=== PATIENT | male | born 1970 | race American Indian/Alaskan Native ===

== ENCOUNTER 2017-12-19 05:54 | Day surgery (SDC) | payer OTHER ==
[2017-12-19] MEDS ORDERED: fentaNYL 100 MCG/2 ML SDV IV ONE ×3 (05:55→07:14)
[2017-12-19] MEDS ORDERED: Midazolam 1 MG/ML 2 ML SDV IV ONE ×6 (05:55→07:30)
[2017-12-19] MEDS ORDERED: Dextrose 5%-0.45% NaCl 1,000 ML IV SCH (06:00)
[2017-12-19] MEDS ORDERED: Sodium Chloride 0.9% 10 ML Syringe FLUSH PRN (06:00)
[2017-12-19] MEDS ORDERED: Midazolam 1 MG/ML 2 ML SDV ONE (06:18)
[2017-12-19] MEDS ORDERED: fentaNYL 100 MCG/2 ML SDV ONE (06:18)
--- NOTE | 2017-12-19 09:21 | OR ---
DATE: 12/19/2017 PROCEDURE PERFORMED: Total colonoscopy and multiple pinch biopsies. INSTRUMENT USED: PCF-H180AL Olympus videocolonoscope. PREMEDICATIONS: Fentanyl 100 mcg intravenous and Versed 3.5 mg intravenous. The procedure was done under pulse oximetry, BP recording, and monitor and storage bin tender. INDICATION: The patient with chronic diarrhea, unexplained and not responsive to medical measures. Colonoscopic examination is done for detection of any polypoid lesions and removal, biopsies to be obtained for microscopic colitis, endoscopic hemostasis therapy if needed. DESCRIPTION OF PROCEDURE: Initial rectal exam was unremarkable. Rigid anoscopy showed small internal hemorrhoids without bleeding from them. The colonoscope was passed with ease. Scattered diverticula were noted in the distal left colon along with deformity. The examination was compromised in a few areas due to the presence of adherent fecal material, which could not be aspirated. Clear large liquid stools present. The scope was passed with ease up to the ileocecal area, photographs were taken of the normal-appearing cecum identified by appendiceal orifice and thin-lipped ileocecal folds. Examination of the terminal ileum could not be accomplished due to thin-lipped ileocecal valve. No bleeding was noted from any of the visualized areas at the commencement of the examination. No stricture. No vascular ectasia. No large isolated ulcerations seen. No evidence of diffuse inflammatory bowel disease in the form of friability, contact bleeding, or ulcerations. No polyp or tumor mass identified. Probing the proximal sides of folds and flexures, using adequate distention and clearing of the stool, withdrawal of the scope was made. Multiple pinch biopsies were taken from the normal-appearing mucosa of the mid transverse colon, mid descending colon, and rectosigmoid and sent for any histopathologic evidence of microscopic colitis. No bleeding was noted from any of the visualized areas at the completion of the examination. IMPRESSION: 1. Internal hemorrhoids. 2. Diverticulosis. The patient tolerated the procedure well. [facility] /[id number]
[2017-12-19 10:12] VITALS: BP 142/106
--- NOTE | 2017-12-19 11:22 | LETTER ---
12/19/2017 Lydia Patel MD [facility] [address] [place] [address] RE: ZAN DELATORRE : [address] Patel: Mr. Zan Delatorre had colonoscopic examination done this morning and he tolerated the procedure well. I herewith send a copy of the endoscopy note and photographs for your review. Thank you. Sincerely, [facility] /[id number]
== END 2017-12-19 09:35 | disposition home or self-care (01) ==
LOC: DL.ENDO 05:54
PROVIDERS: ATTEND Internal Medicine Gastroenterology
DX: K52.9 Noninfective gastroenteritis and colitis, unspecified (principal); K64.8 Other hemorrhoids; K57.30 Diverticulosis of large intestine without perforation or abscess without bleeding; K90.49 Malabsorption due to intolerance, not elsewhere classified; I10 Essential (primary) hypertension; B18.2 Chronic viral hepatitis C; E11.9 Type 2 diabetes mellitus without complications; F32.9 Major depressive disorder, single episode, unspecified; Z79.82 Long term (current) use of aspirin; Z98.890 Other specified postprocedural states
CPT/HCPCS: 45380; 82962; J2250; J3010; J7042

== ENCOUNTER 2017-12-26 17:03 | Emergency (ER) | payer OTHER ==
[2017-12-26] MEDS ORDERED: Sodium Chloride 0.9% 10 ML Syringe FLUSH PRN (17:05)
[2017-12-26] MEDS ORDERED: Sodium Chloride 0.9% 1,000 ML IV ONE ×2 (17:08→18:26)
[2017-12-26] MEDS ORDERED: Ondansetron 4 MG Tab.DIS PO ONE (17:09)
[2017-12-26] MEDS ORDERED: fentaNYL 100 MCG/2 ML SDV IVPUSH ONE (17:09)
[2017-12-26 17:50] LABS: CHLORIDE,CL 107 mmol/L (101-111); SODIUM,NA 136 mmol/L (135-145)
[2017-12-26] MEDS ORDERED: hydrALAZINE 20 MG/ML SDV IVPUSH ONE (18:26)
[2017-12-26 18:34] VITALS: BP 173/98
--- NOTE | 2017-12-26 18:52 | EDM.PDOC ---
Scribed by Emily Burgess 12/26/17 [id number] for Ronald Murry MD ED HPI GENERAL MEDICAL PROBLEM - General Chief Complaint: Respiratory Problem Stated Complaint: SOB EPIGASTRIC PAIN Time Seen by Provider: 12/26/17 16:51 Source of Information: Reports: Patient, RN, RN Notes Reviewed History Limitations: Reports: No Limitations - History of Present Illness INITIAL COMMENTS - FREE TEXT/NARRATIVE: Patient presents to ER from [facility] for further evaluation of right upper quadrant and epigastric pain which has been intermittent and recurrent for 2 weeks. Today he developed fever and chills with worsening pain so he returned to clinic. Earlier this week he was found to have a lipase greater than 1000 and had an abdominal ultrasound at the clinic which revealed a large gallstone. Patient complaint that the pain radiates to the back and right shoulder blade. Onset: Gradual Duration: Getting Worse Location: Reports: Abdomen Quality: Reports: Ache Severity: Severe Improves with: Reports: None Worsens with: Reports: None Associated Symptoms: Reports: No Other Symptoms Epigastric Pain Score (Numeric/FACES): 8 - Related Data Allergies Allergy/AdvReac Type Severity Reaction Status Date / Time No Known Allergies Allergy Verified 12/26/17 16:41 Home Meds: Home Meds Aspirin [Ecotrin] 1 tab PO DAILY 11/26/17 [History] Lisinopril 1 tab PO DAILY 11/26/17 [History] Hydrochlorothiazide 25 mg PO DAILY 12/26/17 [History] Past Medical History HEENT History: Reports: None Cardiovascular History: Reports: High Cholesterol, Hypertension Respiratory History: Reports: None Gastrointestinal History: Reports: Hepatitis Genitourinary History: Reports: None Musculoskeletal History: Reports: Other (See Below) Other Musculoskeletal History: osteomyelitis Neurological History: Reports: Concussion Other Neuro History: multiple concussion Psychiatric History: Reports: Depression Endocrine/Metabolic History: Reports: Diabetes, Type II Hematologic History: Reports: None Immunologic History: Reports: None Oncologic (Cancer) History: Reports: None Dermatologic History: Reports: None - Infectious Disease History Infectious Disease History: Reports: Hepatitis C, MRSA - Past Surgical History HEENT Surgical History: Reports: None GI Surgical History: Reports: None Male Surgical History: Reports: None Musculoskeletal Surgical History: Reports: Other (See Below) Other Musculoskeletal Surgeries/Procedures:: ft and knee surgical procedures. has plate in ankle Social & Family History - Family History Family Medical History: Noncontributory - Tobacco Use Smoking Status *Q: Never Smoker - Caffeine Use Caffeine Use: Reports: Coffee Other Caffeine Use: 1/2 pot of coffee - Alcohol Use Date of Last Drink: 12/20/17 ED ROS GENERAL - Review of Systems Review Of Systems: ROS reveals no pertinent complaints other than HPI. ED EXAM, GENERAL - Physical Exam Exam: See Below Exam Limited By: No Limitations General Appearance: Alert, Other (acutely ill but nontoxicand uncomfortable appearing) Eye Exam: Bilateral Eye: Normal Inspection (normal scleral icterus) Nose: Normal Inspection, Normal Mucosa, No Blood Throat/Mouth: Normal Lips, Normal Voice, No Airway Compromise, Other (dry oral membranes) Head: Atraumatic, Normocephalic Neck: Normal Inspection, Supple, Non-Tender, Full Range of Motion Respiratory/Chest: No Respiratory Distress, Lungs Clear, Normal Breath Sounds, No Accessory Muscle Use, Chest Non-Tender Cardiovascular: Regular Rate, Rhythm GI/Abdominal: Normal Bowel Sounds, Soft, No Distention, No Abnormal Bruit, Guarding, Tender (right upper quadrant and epigastric region). No: Rigid, Rebound (Male) Exam: Deferred Rectal (Males) Exam: Deferred Back Exam: Normal Inspection, Full Range of Motion. No: CVA Tenderness (L), CVA Tenderness (R) Extremities: Normal Inspection Neurological: Alert, Oriented, No Motor/Sensory Deficits Psychiatric: Anxious Skin Exam: Warm, Dry, Intact, Normal Color, No Rash EKG INTERPRETATION EKG Date: 12/26/17 Time: 17:11 Rhythm: Other (sinus rhythm) Rate (Beats/Min): 67 [place]: Normal P-Wave: Present QRS: Other (left ventricular hypertrophy) ST-T: Normal QT: Prolonged Course - Vital Signs Last Recorded V/S: Last Vital Signs Temp 37.4 C 12/26/17 18:31 Pulse 81 12/26/17 18:31 Resp 20 12/26/17 18:31 BP 173/98 H 12/26/17 18:31 Pulse Ox 97 12/26/17 18:31 - Orders/Labs/Meds Orders: Active Orders 24 hr Category Date Time Status EKG 12 Lead [EKG Documentation Completion] [RC] STAT Care 12/26/17 17:07 Active Peripheral IV Care [RC] . DIRECTED Care 12/26/17 17:08 Active DRUG SCREEN URINE BIORAD [URCHEM] Stat Lab 12/26/17 18:40 Ordered UA W/MICROSCOPIC [URIN] Stat Lab 12/26/17 18:40 Ordered Sodium Chloride 0.9% [Normal Saline] 1,000 ml Med 12/26/17 18:26 Active IV .BOLUS Sodium Chloride 0.9% [Saline Flush] Med 12/26/17 17:05 Active 10 ml FLUSH ASDIRECTED PRN Peripheral IV Insertion Adult [OM.PC] Stat Oth 12/26/17 17:05 Ordered Medication Orders Sodium Chloride (Normal Saline) 1,000 mls @ 999 mls/hr IV .BOLUS ONE Stop: 12/26/17 19:26 Last Admin: 12/26/17 18:28 Dose: 999 mls/hr Sodium Chloride (Saline Flush) 10 ml FLUSH ASDIRECTED PRN PRN Reason: Keep Vein Open Last Admin: 12/26/17 17:26 Dose: 10 ml Labs: Laboratory Tests 12/26/17 12/26/17 Range/Units 17:23 17:23 WBC 12.5 H (5.0-10.0) 10^3/uL RBC 4.23 L (4.6-6.2) 10^6/uL Hgb 13.1 L (14.0-18.0) g/dL Hct 36.8 L (40.0-54.0) % MCV 87.0 D (80-100) fL MCH 31.0 (27.0-34.0) pg MCHC 35.6 H (33.0-35.0) g/dL Plt Count 187 (150-450) 10^3/uL Neut % (Auto) 87.5 H (42.2-75.2) % Lymph % (Auto) 5.9 L (20.5-50.1) % [place] % (Auto) 6.2 (2-8) % Eos % (Auto) 0.2 L (1.0-3.0) % Baso % (Auto) 0.2 (0.0-1.0) % Sodium 136 (135-145) mmol/L Potassium 3.0 L (3.6-5.0) mmol/L Chloride 107 (101-111) mmol/L Carbon Dioxide 23.0 (21.0-31.0) mmol/L Anion Gap 9.0 BUN 20 H (7-18) mg/dL Creatinine 1.3 (0.6-1.3) mg/dL Est Cr Clr Drug Dosing 76.43 mL/min Estimated GFR (MDRD) 60 BUN/Creatinine Ratio 15.38 Glucose 110 H (74-105) mg/dL Calcium 7.7 L (8.4-10.2) mg/dl Total Bilirubin 1.1 H (0.2-1.0) mg/dL AST 34 (10-42) IU/L ALT 24 (10-60) IU/L Alkaline Phosphatase 67 (42-121) IU/L Total Protein 5.5 L (6.7-8.2) g/dl Albumin 2.6 L (3.2-5.5) g/dl Globulin 2.9 Albumin/Globulin Ratio 0.90 Amylase 147 H (28-100) U/L Lipase 208 H (22-51) U/L Ethyl Alcohol < 5 mg/dL Meds: Medications Generic Name Dose Route Start Last Admin Trade Name Freq PRN Reason Stop Dose Admin Sodium Chloride 1,000 mls @ 999 mls/hr 12/26/17 18:26 12/26/17 18:28 Normal Saline IV 12/26/17 19:26 999 mls/hr .BOLUS ONE Administration Sodium Chloride 10 ml 12/26/17 17:05 12/26/17 17:26 Saline Flush FLUSH 10 ml ASDIRECTED PRN Administration Keep Vein Open Discontinued Medications Generic Name Dose Route Start Last Admin Trade Name Freq PRN Reason Stop Dose Admin Fentanyl 25 mcg 12/26/17 17:09 12/26/17 17:27 Sublimaze IVPUSH 12/26/17 17:10 25 mcg ONETIME ONE Administration Hydralazine HCl 20 mg 12/26/17 18:26 12/26/17 18:30 Apresoline IVPUSH 12/26/17 18:27 10 mg ONETIME ONE Administration Sodium Chloride 1,000 mls @ 999 mls/hr 12/26/17 17:08 12/26/17 17:26 Normal Saline IV 12/26/17 18:08 999 mls/hr .BOLUS ONE Administration Ondansetron HCl 4 mg 12/26/17 17:09 12/26/17 17:27 Zofran Odt PO 12/26/17 17:10 4 mg ONETIME ONE Administration Departure - Departure Time of Disposition: 18:45 Disposition: DC/Tfer to Acute Hospital 02 Condition: Serious Clinical Impression: Gallstones, Cholecystitis, Hypertension, uncontrolled - Discharge Information Forms: ED Department Discharge, Interfacility Transfer EMTALA - My Orders Last 24 Hours: My Active Orders 12/26/17 17:05 Sodium Chloride 0.9% [Saline Flush] 10 ml FLUSH ASDIRECTED PRN Peripheral IV Insertion Adult [OM.PC] Stat 12/26/17 17:07 EKG 12 Lead [EKG Documentation Completion] [RC] STAT 12/26/17 17:08 Peripheral IV Care [RC] . DIRECTED 12/26/17 18:26 Sodium Chloride 0.9% [Normal Saline] 1,000 ml IV .BOLUS 12/26/17 18:40 DRUG SCREEN URINE BIORAD [URCHEM] Stat UA W/MICROSCOPIC [URIN] Stat - Assessment/Plan Last 24 Hours: My Active Orders 12/26/17 17:05 Sodium Chloride 0.9% [Saline Flush] 10 ml FLUSH ASDIRECTED PRN Peripheral IV Insertion Adult [OM.PC] Stat 12/26/17 17:07 EKG 12 Lead [EKG Documentation Completion] [RC] STAT 12/26/17 17:08 Peripheral IV Care [RC] . DIRECTED 12/26/17 18:26 Sodium Chloride 0.9% [Normal Saline] 1,000 ml IV .BOLUS 12/26/17 18:40 DRUG SCREEN URINE BIORAD [URCHEM] Stat UA W/MICROSCOPIC [URIN] Stat I have read and agree with the documentation that has been completed regarding this visit. By signing this record, I attest that the documentation was completed in my physical presence and is an accurate record of the encounter.
== END 2017-12-26 19:19 ==
LOC: DL.ED 17:03
DX: K80.10 Calculus of gallbladder with chronic cholecystitis without obstruction (principal); E78.00 Pure hypercholesterolemia, unspecified; I10 Essential (primary) hypertension; E11.9 Type 2 diabetes mellitus without complications; Z79.82 Long term (current) use of aspirin; Z79.899 Other long term (current) drug therapy
CPT/HCPCS: 36415; 80053; 80305; 81001; 82150; 83690; 85025; 93005; 96361; 96374; 96375; 99284; A9270; G0480; J0360; J3010; J7030; J7050; 93010

== ENCOUNTER 2018-01-05 17:15 | Emergency (ER) | payer OTHER ==
[2018-01-05 17:34] VITALS: BP 153/106
--- NOTE | 2018-01-05 20:14 | EDM.PDOC ---
ED HPI GENERAL MEDICAL PROBLEM - General Chief Complaint: Lower Extremity Injury/Pain Stated Complaint: LEFT LEG Time Seen by Provider: 01/05/18 20:06 Source of Information: Reports: Patient History Limitations: Reports: No Limitations - History of Present Illness INITIAL COMMENTS - FREE TEXT/NARRATIVE: c/o pain in left buttock to ankle since friday. Unable to find position of comfort. tried naproxyn and ibuprofen this am and nothing since. Left Leg Pain Score (Numeric/FACES): 10 - Related Data Allergies Allergy/AdvReac Type Severity Reaction Status Date / Time No Known Allergies Allergy Verified 12/26/17 16:41 Home Meds: Home Meds Aspirin [Ecotrin] 1 tab PO DAILY 11/26/17 [History] Lisinopril 1 tab PO DAILY 11/26/17 [History] Hydrochlorothiazide 25 mg PO DAILY 12/26/17 [History] Naproxen 250 mg PO PRN 01/05/18 [History] Venlafaxine [Effexor] 75 mg PO DAILY 01/05/18 [History] amLODIPine Besylate [Amlodipine Besylate] 10 mg PO DAILY 01/05/18 [History] Past Medical History HEENT History: Reports: None Cardiovascular History: Reports: High Cholesterol, Hypertension Respiratory History: Reports: None Gastrointestinal History: Reports: Hepatitis Genitourinary History: Reports: None Musculoskeletal History: Reports: Other (See Below) Other Musculoskeletal History: osteomyelitis Neurological History: Reports: Concussion Other Neuro History: multiple concussion Psychiatric History: Reports: Depression Endocrine/Metabolic History: Reports: Diabetes, Type II Hematologic History: Reports: None Immunologic History: Reports: None Oncologic (Cancer) History: Reports: None Dermatologic History: Reports: None - Infectious Disease History Infectious Disease History: Reports: Hepatitis C, MRSA - Past Surgical History HEENT Surgical History: Reports: None GI Surgical History: Reports: None Male Surgical History: Reports: None Musculoskeletal Surgical History: Reports: Other (See Below) Other Musculoskeletal Surgeries/Procedures:: ft and knee surgical procedures. has plate in ankle Social & Family History - Family History Family Medical History: Noncontributory - Tobacco Use Smoking Status *Q: Never Smoker - Caffeine Use Caffeine Use: Reports: Coffee, Soda, Tea Other Caffeine Use: 1/2 pot of coffee - Recreational Drug Use Recreational Drug Use: No Review of Systems - Review of Systems Review Of Systems: ROS reveals no pertinent complaints other than HPI. ED EXAM, GENERAL - Physical Exam Exam: See Below Exam Limited By: No Limitations General Appearance: Alert, Mild Distress Eye Exam: Bilateral Eye: EOMI Ears: Normal External Exam Nose: Normal Inspection Throat/Mouth: Normal Inspection Head: Atraumatic, Normocephalic Neck: Normal Inspection, Full Range of Motion Respiratory/Chest: No Respiratory Distress, Lungs Clear Cardiovascular: Normal Peripheral Pulses, Regular Rate, Rhythm Back Exam: Muscle Spasm, Paraspinal Tenderness (left sciatic ) Extremities: Leg Pain (left). No: Limited Range of Motion, Pallor, Redness Neurological: Alert, Oriented, Normal Cognition, Normal Reflexes, Other (equal strength bilateral). No: Abnormal Reflexes Skin Exam: Warm, Dry, Intact, Normal Color Course - Vital Signs Last Recorded V/S: Last Vital Signs Temp 97.5 F 01/05/18 17:32 Pulse 94 01/05/18 17:32 Resp 20 01/05/18 17:32 BP 153/106 H 01/05/18 17:32 Pulse Ox 100 01/05/18 17:32 - Orders/Labs/Meds Labs: Laboratory Tests 01/05/18 01/05/18 01/05/18 Range/Units 17:39 20:45 20:45 Urine Color Yellow (YELLOW) Urine Appearance Slightly cloudy (CLEAR) Urine pH 7.5 (5.0-9.0) Ur Specific [place] 1.025 (1.005-1.030) Urine Protein >=300 H (NEGATIVE) Urine Glucose (UA) Negative (NEGATIVE) Urine Ketones Negative (NEGATIVE) Urine Occult Blood Moderate H (NEGATIVE) Urine Nitrite Negative (NEGATIVE) Urine Bilirubin Negative (NEGATIVE) Urine Urobilinogen 0.2 (0.2-1.0) mg/dL Ur Leukocyte Esterase Negative (NEGATIVE) Urine RBC >100 H /HPF Urine WBC 0-5 (0-5/HPF) /HPF Ur Epithelial Cells Few /HPF Urine Bacteria Few (0-FEW/HPF) /HPF Urine Mucus Few H /LPF Urine Opiates Screen Positive H (NEGATIVE) Ur Oxycodone Screen Negative (NEGATIVE) Urine Methadone Screen Negative (NEGATIVE) Ur Barbiturates Screen Negative (NEGATIVE) U Tricyclic Antidepress Negative (NEGATIVE) Ur Phencyclidine Scrn Negative (NEGATIVE) Ur Amphetamine Screen Negative (NEGATIVE) U Methamphetamines Scrn Negative (NEGATIVE) Urine MDMA Screen Negative (NEGATIVE) U Benzodiazepines Scrn Negative (NEGATIVE) Urine Cocaine Screen Negative (NEGATIVE) U Marijuana (THC) Screen Positive H (NEGATIVE) Ethyl Alcohol < 5 mg/dL Meds: Medications Discontinued Medications Generic Name Dose Route Start Last Admin Trade Name Celia PRN Reason Stop Dose Admin Cyclobenzaprine HCl Confirm 01/05/18 20:29 Flexeril Administered 01/05/18 20:30 Dose 10 mg .ROUTE .STK-MED ONE Ketorolac Tromethamine 30 mg 01/05/18 20:15 01/05/18 20:29 Toradol IM 01/05/18 20:16 30 mg ONETIME ONE Administration Orphenadrine Citrate 60 mg 01/05/18 20:16 01/05/18 20:30 Norflex IM 01/05/18 20:17 60 mg ONETIME ONE Administration Tramadol HCl Confirm 01/05/18 20:28 Ultram Administered 01/05/18 20:29 Dose 50 mg .ROUTE .STK-MED ONE Departure - Departure Time of Disposition: 20:32 Disposition: Home, Self-Care 01 Condition: Good Clinical Impression: Sciatic nerve pain Qualifiers: Laterality: left Qualified Code(s): M54.32 - Sciatica, left side - Discharge Information Instructions: Sciatica, [id number] Forms: ED Department Discharge Additional Instructions: light activity increase fluid intake ice to low back /buttock area flexeril 10mg every 8 hours as needed #6 Tramadol 50mg one every 6 hours as needed for severe pain clinic follow up
[2018-01-05] MEDS ORDERED: Ketorolac 30 MG/ML SDV IM ONE (20:15)
[2018-01-05] MEDS ORDERED: traMADol 50 MG Tab ONE (20:28)
[2018-01-05] MEDS ORDERED: Cyclobenzaprine 10 MG Tab ONE (20:29)
== END 2018-01-05 20:42 | disposition home or self-care (01) ==
LOC: DL.ED 17:15
DX: M54.32 Sciatica, left side (principal); E78.00 Pure hypercholesterolemia, unspecified; I10 Essential (primary) hypertension; E11.9 Type 2 diabetes mellitus without complications; Z79.82 Long term (current) use of aspirin; Z79.899 Other long term (current) drug therapy
CPT/HCPCS: 36415; 80305; 81001; 96372; 99283; G0480; J1885; J2360

== ENCOUNTER 2020-10-29 13:58 | Emergency (ER) | payer OTHER ==
[2020-10-29 15:02] VITALS: BP 115/71; PULSE 73
== END 2020-10-29 16:40 | disposition left against medical advice (07) ==
LOC: DL.ED 13:58
DX: Z53.21 Procedure and treatment not carried out due to patient leaving prior to being seen by health care provider (principal)

== ENCOUNTER 2020-10-29 20:49 | Emergency (ER) | payer OTHER ==
[2020-10-29 21:06] VITALS: BP 117/67; PULSE 73
--- NOTE | 2020-10-29 21:50 | EDM.PDOC ---
ED HPI GENERAL MEDICAL PROBLEM - General Chief Complaint: Lower Extremity Injury/Pain Stated Complaint: RIGHT KNEE SWELLING Time Seen by Provider: 10/29/20 21:25 Source of Information: Reports: Patient History Limitations: Reports: No Limitations - History of Present Illness INITIAL COMMENTS - FREE TEXT/NARRATIVE: This 50 yo male patient reports to the ED with right knee swelling, pain and redness that started over the past 3 days. The patient reports he also had pain and swelling in his left shoulder. The patient denies any recent falls or injuries. Onset: Gradual Duration: Day(s):, Constant, Getting Worse Location: Reports: Lower Extremity, Right Quality: Reports: Ache Severity: Moderate Improves with: Reports: None Worsens with: Reports: None Context: Reports: Other Associated Symptoms: Reports: No Other Symptoms Knee Pain Score (Numeric/FACES): 10 - Related Data Allergies Allergy/AdvReac Type Severity Reaction Status Date / Time No Known Allergies Allergy Verified 10/29/20 14:58 Home Meds: Home Meds Lisinopril 1 tab PO BEDTIME 11/26/17 [History] lisinopriL [Lisinopril] 1 tab PO DAILY 10/29/20 [History] Past Medical History HEENT History: Reports: None Cardiovascular History: Reports: High Cholesterol, Hypertension Respiratory History: Reports: None Gastrointestinal History: Reports: Hepatitis Genitourinary History: Reports: None Musculoskeletal History: Reports: Other (See Below) Other Musculoskeletal History: osteomyelitis Neurological History: Reports: Concussion Other Neuro History: multiple concussion Psychiatric History: Reports: Depression Endocrine/Metabolic History: Reports: Diabetes, Type II Hematologic History: Reports: None Immunologic History: Reports: None Oncologic (Cancer) History: Reports: None Dermatologic History: Reports: None - Infectious Disease History Infectious Disease History: Reports: Hepatitis C, MRSA - Past Surgical History HEENT Surgical History: Reports: None GI Surgical History: Reports: None Male Surgical History: Reports: None Musculoskeletal Surgical History: Reports: Other (See Below) Other Musculoskeletal Surgeries/Procedures:: ft and knee surgical procedures. has plate in ankle Social & Family History - Family History Family Medical History: No Pertinent Family History - Tobacco Use Tobacco Use Status *Q: Never Tobacco User Second Hand Smoke Exposure: No - Caffeine Use Caffeine Use: Reports: Coffee Other Caffeine Use: 1/2 pot of coffee - Recreational Drug Use Recreational Drug Use: No Review of Systems - Review of Systems Review Of Systems: Comprehensive ROS is negative, except as noted in HPI. ED EXAM, GENERAL - Physical Exam Exam: See Below Exam Limited By: No Limitations General Appearance: Alert, WD/WN, Moderate Distress Eye Exam: Bilateral Eye: EOMI, Normal Inspection, PERRL Ears: Normal External Exam, Normal Canal, Hearing Grossly Normal, Normal TMs Nose: Normal Inspection, Normal Mucosa, No Blood Throat/Mouth: Normal Inspection, Normal Lips, Normal Teeth, Normal Gums, Normal Oropharynx, Normal Voice, No Airway Compromise Head: Atraumatic, Normocephalic Neck: Normal Inspection, Supple, Non-Tender, Full Range of Motion Respiratory/Chest: No Respiratory Distress, Lungs Clear, Normal Breath Sounds, No Accessory Muscle Use, Chest Non-Tender Cardiovascular: Normal Peripheral Pulses, Regular Rate, Rhythm, No Edema, No Gallop, No JVD, No Murmur, No Rub GI/Abdominal: Normal Bowel Sounds, Soft, Non-Tender, No Organomegaly, No Disten tion, No Abnormal Bruit, No Mass (Male) Exam: Deferred Rectal (Males) Exam: Deferred Back Exam: Normal Inspection, Full Range of Motion, NT Extremities: Joint Swelling (right knee), Limited Range of Motion Neurological: Alert, Oriented, CN II-XII Intact, Normal Cognition, Normal Gait, Normal Reflexes, No Motor/Sensory Deficits Psychiatric: Normal Affect, Normal Mood Skin Exam: Warm, Dry, Intact, Normal Color, No Rash Lymphatic: No Adenopathy Course - Vital Signs Last Recorded V/S: Last Vital Signs Temp 36.8 C 10/29/20 21:03 Pulse 73 10/29/20 21:03 Resp 18 10/29/20 21:03 BP 117/67 10/29/20 21:03 Pulse Ox 100 10/29/20 21:03 - Orders/Labs/Meds Labs: Laboratory Tests 10/29/20 10/29/20 Range/Units 21:32 21:32 WBC 15.9 H (5.0-10.0) 10^3/uL RBC 3.85 L (4.6-6.2) 10^6/uL Hgb 11.9 L (14.0-18.0) g/dL Hct 34.1 L (40.0-54.0) % MCV 88.6 (80-100) fL MCH 30.9 (27.0-34.0) pg MCHC 34.9 (33.0-35.0) g/dL Plt Count 274 D (150-450) 10^3/uL Neut % (Auto) 74.2 (42.2-75.2) % Lymph % (Auto) 13.9 L (20.5-50.1) % [place] % (Auto) 11.1 H (2-8) % Eos % (Auto) 0.7 L (1.0-3.0) % Baso % (Auto) 0.1 (0.0-1.0) % Add Manual Diff Yes Neutrophils % (Manual) 76 H (42-75) % Band Neutrophils % 1 % Lymphocytes % (Manual) 13 L (20-50) % Monocytes % (Manual) 9 H (2-8) % Eosinophils % (Manual) 1 (1-3) % Sodium 139 (136-145) mmol/L Potassium 3.8 (3.5-5.1) mmol/L Chloride 104 (98-107) mmol/L Carbon Dioxide 26 (21-32) mmol/L Anion Gap 12.8 (7-13) mEq/L BUN 34 H (7-18) mg/dL Creatinine 2.37 H (0.70-1.30) mg/dL Est Cr Clr Drug Dosing 40.60 mL/min Estimated GFR (MDRD) 29 BUN/Creatinine Ratio 14.3 (No establ ref range) Glucose 103 H (74-99) mg/dL Uric Acid 5.6 (3.5-7.2) mg/dL Calcium 8.0 L (8.5-10.1) mg/dL Total Bilirubin 0.4 (0.2-1.0) mg/dL AST 32 (15-37) U/L ALT 64 H (16-63) U/L Alkaline Phosphatase 95 (46-116) U/L Total Protein 7.3 (6.4-8.2) g/dL Albumin 2.7 L (3.4-5.0) g/dL Globulin 4.6 Albumin/Globulin Ratio 0.59 Meds: Medications Discontinued Medications Generic Name Dose Route Start Last Admin Trade Name Freq PRN Reason Stop Dose Admin Prednisone 40 mg 10/29/20 22:42 Prednisone 20 Mg Tab PO 10/29/20 22:43 ONETIME ONE Departure - Departure Time of Disposition: 22:47 Disposition: Home, Self-Care 01 Condition: Fair Clinical Impression: Effusion, right knee - Discharge Information *PRESCRIPTION DRUG MONITORING PROGRAM REVIEWED*: Not Applicable *COPY OF PRESCRIPTION DRUG MONITORING REPORT IN PATIENT INOCENCIO: Not Applicable Instructions: Knee Effusion, [id number] Forms: ED Department Discharge Care Plan Goals: The patient was advised of the examination, lab and x-ray results during the visit. The patient was encouraged to rest, ice and elevate his knee over the next 48 hours. The patient was given an oral dose of Prednisone while in the ED. The patient was discharged with a script for Prednisone (20 mg) #10 to take 2 by mouth daily for 5 days. The patient should follow-up with his primary care facility next week. If the patient has any additional symptoms or concerns, the patient should either return to the emergency department or visit his primary care facility. Sepsis Event Note (ED) - Evaluation Sepsis Screening Result: No Definite Risk - Focused Exam Vital Signs: Vital Signs Temp Pulse Resp BP Pulse Ox 10/29/20 21:03 36.8 C 73 18 117/67 100
[2020-10-29 22:11] LABS: ANION GAP 12.8 mEq/L (7-13)
--- NOTE | 2020-10-29 22:33 | CR ---
PROCEDURE INFORMATION: Exam: XR Right Knee Exam date and time: 10/29/2020 10:09 PM Age: 50 years old Clinical indication: Other: Pain/swelling--no trauma; Additional info: Right knee swelling (previous replacement) TECHNIQUE: Imaging protocol: XR Right knee. Views: 3 views. Total images: 3 COMPARISON: CR KNEE RT AP LAT [place] 02/16/2008 10:09 PM FINDINGS: Bones/joints: Evidence of postsurgical changes ACL graft. No acute fracture. Soft tissues: Soft tissue edema with suprapatellar effusion. IMPRESSION: 1. Soft tissue edema especially laterally with probable suprapatellar effusion. 2. No fracture or acute bone process.
[2020-10-29] MEDS ORDERED: predniSONE 20 MG Tab PO ONE (22:42)
== END 2020-10-29 22:58 | disposition home or self-care (01) ==
LOC: DL.ED 20:49
DX: M25.461 Effusion, right knee (principal); I10 Essential (primary) hypertension; E11.9 Type 2 diabetes mellitus without complications; Z79.899 Other long term (current) drug therapy
CPT/HCPCS: 36415; 73562; 80053; 84550; 85025; 99283; J7512

== ENCOUNTER 2022-09-02 10:13 | Emergency (ER) | payer OTHER ==
[2022-09-02 10:35] VITALS: BP 145/88; PULSE 60
== END 2022-09-02 11:07 | disposition home or self-care (01) ==
LOC: DL.ED 10:13
DX: L08.9 Local infection of the skin and subcutaneous tissue, unspecified (principal); E78.00 Pure hypercholesterolemia, unspecified; I10 Essential (primary) hypertension; E11.9 Type 2 diabetes mellitus without complications; Z79.899 Other long term (current) drug therapy
CPT/HCPCS: 82947; 87070; 87077; 87186; 99283

== ENCOUNTER 2023-01-04 14:01 | Emergency (ER) | payer MEDICAID | END 2023-01-04 15:49 | disposition left against medical advice (07) | LOC: DL.ED 14:01 | DX: Z53.21 Procedure and treatment not carried out due to patient leaving prior to being seen by health care provider (principal) ==

== ENCOUNTER 2024-09-15 18:15 | Emergency (ER) | payer SELFPAY ==
[2024-09-15 19:16] VITALS: BP 131/75; PULSE 65
== END 2024-09-15 19:14 | disposition home or self-care (01) ==
LOC: DL.ED 18:15
DX: S43.015A Anterior dislocation of left humerus, initial encounter (principal); I12.9 Hypertensive chronic kidney disease with stage 1 through stage 4 chronic kidney disease, or unspecified chronic kidney disease; N18.9 Chronic kidney disease, unspecified; E11.22 Type 2 diabetes mellitus with diabetic chronic kidney disease; X58.XXXA Exposure to other specified factors, initial encounter
CPT/HCPCS: 23650; 73030-LT; 99283; 99283-25

== ENCOUNTER 2024-09-21 16:33 | Emergency (ER) | payer SELFPAY ==
[2024-09-21 16:52] VITALS: PULSE 74
[2024-09-21 17:06] LABS: BASOPHILS PERCENT AUTO 0.2 % (0.0-1.0); EOSINOPHILS PERCENT AUTO 1.3 % (1.0-3.0); HEMATOCRIT 29.3 % (40.0-54.0); HEMOGLOBIN 9.9 g/dL (14.0-18.0); LYMPHOCYTES PERCENT AUTO 11.3 % (20.5-50.1); MEAN CORPUSCULAR HGB CONC 33.8 g/dL (33.0-35.0); MEAN CORPUSCULAR VOLUME 88.8 fL (80-100); MONOCYTES PERCENT AUTO 7.8 % (2-8); NEUTROPHILS PERCENT AUTO 79.4 % (42.2-75.2); PLATELET COUNT,PLT 256 10^3/uL (150-450); WHITE BLOOD CELL COUNT,WBC 9.7 10^3/uL (5.0-10.0)
[2024-09-21] MEDS: Sodium Chloride 0.9% 1,000 ML IV ONE ×2 (17:10→18:29)
[2024-09-21] MEDS: Acetaminophen 325 MG Tab PO ONE (17:19)
[2024-09-21 17:32] LABS: ALANINE AMINOTRANSFERASE,ALT 36 U/L (16-63); ALKALINE PHOSPHATASE 109 U/L (46-116); ANION GAP 17.1 mEq/L (7-13); ASPARTATE AMNIOTRANSFERASE,AST 27 U/L (15-37); BILIRUBIN TOTAL 0.3 mg/dL (0.2-1.0); BLOOD UREA NITROGEN,BUN 47 mg/dL (7-18); BUN/CREATININE RATIO 9.9 (No establ ref range); CARBON DIOXIDE,CO2 18 mmol/L (21-32); CHLORIDE,CL 107 mmol/L (98-107); CREATINE KINASE,CK 67 U/L (39-308); CREATININE 4.73 mg/dL (0.70-1.30); EST CRCL DRUG DOSING (CG) 19.46 mL/min; GLUCOSE RANDOM 114 mg/dL (70-99); LIPASE 60 U/L (16-77); MAGNESIUM 1.6 mg/dL (1.8-2.4); POTASSIUM,K 5.1 mmol/L (3.5-5.1); PROTEIN TOTAL,TP 7.7 g/dL (6.4-8.2); SODIUM,NA 137 mmol/L (136-145)
[2024-09-21 17:50] LABS: A/G RATIO 0.64; ESTIMATED GFR 14 mL/min (>=60); ETHANOL BLOOD MEDICAL < 3 mg/dL (0)
[2024-09-21] MEDS: Dicyclomine 10 MG Cap PO ONE (18:00)
[2024-09-21] MEDS: Iopamidol 612 MG/ML 100 ML Bottle IVPUSH ONE (18:22)
[2024-09-21] MEDS: Magnesium Sulfate/Water Premix 2 GM in Premix Bag 1 BAG IV ONE (18:29)
[2024-09-21 18:48] LABS: APPEARANCE,URINE CLEAR (CLEAR); BILIRUBIN,URINE NEGATIVE (NEGATIVE); COLOR,URINE YELLOW (YELLOW); GLUCOSE,URINE NEGATIVE (NEGATIVE); KETONES,URINE NEGATIVE (NEGATIVE); LEUKOCYTE ESTERASE,URINE NEGATIVE (NEGATIVE); NITRITE,URINE NEGATIVE (NEGATIVE); OCCULT BLOOD,URINE SMALL (NEGATIVE); PH,URINE 5.5 (5.0-9.0); PROTEIN,URINE >=300 (NEGATIVE); UROBILINOGEN,URINE 0.2 mg/dL (0.2-1.0)
[2024-09-21 18:53] LABS: AMPHETAMINES,URINE NEGATIVE (NEGATIVE); BARBITURATES,URINE NEGATIVE (NEGATIVE); BENZODIAZEPINE,URINE NEGATIVE (NEGATIVE); MDMA (ECSTASY), URINE NEGATIVE (NEGATIVE); METHADONE,URINE NEGATIVE (NEGATIVE); METHAMPHETAMINES,URINE NEGATIVE (NEGATIVE); OPIATES,URINE NEGATIVE (NEGATIVE); OXYCODONE,URINE NEGATIVE (NEGATIVE); PHENCYCLIDINE,URINE NEGATIVE (NEGATIVE); TCA,URINE NEGATIVE (NEGATIVE)
[2024-09-21 18:58] LABS: BACTERIA,URINE FEW /HPF (0-FEW/HPF); EPITHELIAL CELLS,URINE FEW /HPF (NOT SEEN); MUCUS,URINE FEW /LPF (NOT SEEN); RBC,URINE 0-5 /HPF (0-5); WBC,URINE 0-5 /HPF (0-5/HPF)
[2024-09-21 21:29] LABS: ANION GAP 17.9 mEq/L (7-13); CALCIUM 7.8 mg/dL (8.5-10.1); CREATININE 4.42 mg/dL (0.70-1.30); EST CRCL DRUG DOSING (CG) 20.82 mL/min; MAGNESIUM 2.2 mg/dL (1.8-2.4); POTASSIUM,K 4.9 mmol/L (3.5-5.1)
[2024-09-21] MEDS: Ciprofloxacin 500 MG Tab PO ONE (22:24)
[2024-09-21 22:43] VITALS: BP 162/99
== END 2024-09-21 22:31 | disposition home or self-care (01) ==
LOC: DL.ED 16:33
DX: N17.9 Acute kidney failure, unspecified (principal); D64.9 Anemia, unspecified; E83.42 Hypomagnesemia; I12.9 Hypertensive chronic kidney disease with stage 1 through stage 4 chronic kidney disease, or unspecified chronic kidney disease; N18.9 Chronic kidney disease, unspecified; E78.00 Pure hypercholesterolemia, unspecified; E11.22 Type 2 diabetes mellitus with diabetic chronic kidney disease; Z79.899 Other long term (current) drug therapy
CPT/HCPCS: 36415; 74176; 80048; 80053; 80305; 80307; 81001; 82550; 83690; 83735; 84484; 85025; 87428; 96361; 96365; 96366; 99284; A9270; J3475; J7030

== ENCOUNTER 2024-10-11 17:02 | Emergency (ER) | payer SELFPAY ==
[2024-10-11] MEDS ORDERED: Sodium Chloride 0.9% 10 ML Syringe FLUSH PRN (17:21)
[2024-10-11] MEDS: HYDROmorphone 1 MG/ML Syringe IVPUSH ONE (17:31)
[2024-10-11] MEDS: Propofol 200 MG/20 ML SDV IVPUSH ONE (18:25)
[2024-10-11 20:13] VITALS: BP 119/83; PULSE 66
== END 2024-10-11 20:03 | disposition home or self-care (01) ==
LOC: DL.ED 17:02
DX: S43.005A Unspecified dislocation of left shoulder joint, initial encounter (principal); I12.9 Hypertensive chronic kidney disease with stage 1 through stage 4 chronic kidney disease, or unspecified chronic kidney disease; N18.9 Chronic kidney disease, unspecified; E78.00 Pure hypercholesterolemia, unspecified; E11.22 Type 2 diabetes mellitus with diabetic chronic kidney disease; F17.210 Nicotine dependence, cigarettes, uncomplicated; Z79.899 Other long term (current) drug therapy; X50.0XXA Overexertion from strenuous movement or load, initial encounter; Y93.89 Activity, other specified
CPT/HCPCS: 23650; 73020; 73030; 96374; 99283; J1171; J2704

== ENCOUNTER → 2024-12-09 | Day surgery (SDC) | payer MEDICAID, OTHER ==
[~2024-12-09] MED LIST: Midazolam 1 MG/ML 2 ML SDV IV ONE; Midazolam 1 MG/ML 2 ML SDV ONE; fentaNYL 100 MCG/2 ML SDV IV ONE; fentaNYL 100 MCG/2 ML SDV ONE
[2024-12-09] MEDS: fentaNYL 100 MCG/2 ML SDV IV ONE ×2 (06:33→06:34)
[2024-12-09] MEDS: Midazolam 1 MG/ML 2 ML SDV IV ONE ×5 (06:34→06:37)
[2024-12-09] MEDS: Dextrose 5%-0.45% NaCl 1,000 ML IV SCH (08:42)
[2024-12-09 09:07] VITALS: BP 113/71; PULSE 55
== END ==
LOC: DL.ENDO 05:25
PROVIDERS: ATTEND Internal Medicine Gastroenterology
DX: Z12.11 Encounter for screening for malignant neoplasm of colon (principal); I10 Essential (primary) hypertension; E11.9 Type 2 diabetes mellitus without complications; Z88.8 Allergy status to other drugs, medicaments and biological substances
CPT/HCPCS: J2250; J3010